=== PATIENT | female | born 1980 | race Two or more races ===

== ENCOUNTER 2019-12-29 18:13 | Inpatient (IN) | payer MEDICARE, MEDICAID ==
[~2019-12-29] VITALS: Ht 167.6 cm; Wt 110.2 kg
[2019-12-29] MEDS ORDERED: ALBUTEROL2.5 MG/3 M INH (22:03)
[2019-12-29] MEDS ORDERED: KEPPRA500 M4 ORAL (22:03)
[2019-12-29] MEDS ORDERED: Albuterol ud Inhalation HHN PRN (22:30)
[2019-12-29 23:00] VITALS: BP 128/77
--- NOTE | 2019-12-29 23:00 | NUR ---
NURSE NOTES: PATIENT DIRECT ADMIT FROM STEPHAN. PATIENT AOX4. NO S/S DISTRESS NOTED. REVIEWED BELONGINGS - ONLY CELL PHONE AND INTERIOR WIRER. BOYFRIEND AT BEDSIDE. NO OPEN WOUNDS OR PRESSURE ULCERS NOTED. CAN REPOSITION SELF. BED IN LOWEST POSITION, CALL LIGHT WITHIN REACH, BED ALARM ON. WILL CONTINUE TO MONITOR.
[2019-12-30 04:00] VITALS: BP 120/67
[2019-12-30] MEDS: LORazepam Inj 2mg/ml 1ml IV PRN ×2 (05:40→15:38)
--- NOTE | 2019-12-30 06:00 | NUR ---
NURSE NOTES: 0530 - PATIENT'S BOYFRIEND WOKE UP AND NOTICED PATIENT WAS HAVING A SEIZURE AND NOTIFIED THE NURSE. THE NURSE WENT TO GET THE ATIVAN AND ATIVAN PRN MED WAS ADMINISTERED. PER PATIENT'S BOYFRIEND, SEIZURE LASTED FOR ABOUT TEN SECONDS AND THAT SHE HAD A SECOND ONE. NURSE TRIED TO ASSESS PATIENT'S NEURO STATUS, BUT PATIENT WAS UNAROUSABLE. 0550 - PATIENT STARTED TO BECOME MORE RESPONSIVE. PATIENT ABLE TO ANSWER YES OR NO QUESTIONS AND COMPLAINING OF SEVERE HEADACHE AND BACK PAIN. 0600 - CALLED AND LEFT MESSAGE FOR DR. NAIDU REGARDING PATIENT'S REQUEST FOR DILAUDID SINCE PATIENT STATED THAT WAS THE ONLY MEDICATION THAT HELPED WITH HER PAIN.
[2019-12-30] MEDS: Tylenol #3 tab (300mg/30mg) ORAL PRN ×2 (06:30→12:23)
--- NOTE | 2019-12-30 07:15 | NUR ---
NURSE NOTES: Received report from CAREN Fam. Patient A&Ox4, in bed eating breakfast. On room air, no signs of distress or labored breathing. IVs intact, patent, and saline locked. Side rails padded for seizure precaution. Patient complaining of pain. Will follow up with pain management orders. Bed in lowest position with call light in reach. Will continue with plan of care.
--- NOTE | 2019-12-30 07:21 | NUR ---
HAND-OFF: Report given to OLEGARIO Delgado RN.
[2019-12-30 08:00] VITALS: BP 94/55
--- NOTE | 2019-12-30 08:15 | NUR ---
NURSE NOTES: Informed Dr. Mckenna patient is complaining of 10/10 sharp, lower back pain and current pain medication has not been effective. No new orders were given.
[2019-12-30 09:12] LABS: BASOPHILS % (AUTO) 1.3 % (0.0-2.0); EOSINOPHILS % (AUTO) 3.5 % (0.0-3.0); HEMATOCRIT 36.1 % (37.0-47.0); HEMOGLOBIN 11.8 G/DL (12.0-16.0); LYMPHOCYTES % (AUTO) 24.7 % (20.0-45.0); MEAN CORPUSCULAR VOLUME 78 FL (80-99); MONOCYTES % (AUTO) 6.9 % (1.0-10.0); NEUTROPHILS % (AUTO) 63.7 % (45.0-75.0); PLATELET COUNT 309 K/UL (150-450); RED BLOOD COUNT 4.62 M/UL (4.20-5.40); RED CELL DISTRIBUTION WIDTH 14.2 % (11.6-14.8); WHITE BLOOD COUNT 10.1 K/UL (4.8-10.8)
[2019-12-30 09:23] LABS: ANION GAP 4 mmol/L (5-15); BLOOD UREA NITROGEN 10 mg/dL (7-18); CALCIUM 8.8 MG/DL (8.5-10.1); CARBON DIOXIDE 27 MMOL/L (21-32); CHLORIDE 109 MMOL/L (98-107); CREATININE 0.7 MG/DL (0.55-1.30); PHOSPHORUS 2.8 MG/DL (2.5-4.9); SODIUM 140 MMOL/L (136-145)
[2019-12-30] MEDS ORDERED: Heparin 5000 units/ml inj SUBQ SCH (10:00)
[2019-12-30 12:00] VITALS: BP 102/60
--- NOTE | 2019-12-30 12:48 | Consultation ---
History of Present Illness General Date patient seen: Dec 30, 2019 Time patient seen: 08:00 Chief Complaint: breakthrough seziure Referring physician: dr Mckenna Reason for Consultation: inpatient management Present Illness HPI 39 years old female with past medical history of seizure disorder ,diagnosed 2 years ago, cardiac arrest, stroke, headaches, only experienced during seizure activity, initially presented to [facility] due to breakthrough seizure episodes. Patient had another episode of seizure at [place], which was focal with right upper extremity shaking. Patient was treated with Ativan and remained postictal after that . Laboratory work-up revealed mild leukocytosis WBC 11.2, potassium 2.4, magnesium was stable. CT of the head revealed no acute intracranial pathology. EtOH level less than 10. Urinalysis revealed no evidence of UTI. Potassium was repleted and stabilized. Patient subsequently was transferred to [facility] due to insurance purposes . Overnight she had another 2 episodes of seizures. During evaluation patient was already awake and alert , but very weak and reported poorly controlled seizure activity . she does has a neurologist , but she does not follow him on a regular basis. Allergies: Coded Allergies: AMITRIPTYLINE (Verified Allergy, Unknown, 12/29/19) GABAPENTIN (Verified Allergy, Unknown, 12/29/19) SUMATRIPTAN (Verified Allergy, Unknown, 12/29/19) TOPIRAMATE (Verified Allergy, Unknown, 12/29/19) Medication History Scheduled Levetiracetam (Keppra), 500 MG ORAL BID, (Reported) Scheduled PRN Albuterol Sulfate* (Albuterol Sulfate Hhn*), 3 ML INH Q4H PRN for Shortness of Breath, (Reported) Patient History History Provided By: Patient Healthcare decision maker Resuscitation status Advanced Directive on File Review of Systems Constitutional: Reports: weakness Eye: Reports: no symptoms ENT: Reports: no symptoms Respiratory: Reports: no symptoms Cardiovascular: Reports: no symptoms Gastrointestinal: Reports: no symptoms Musculoskeletal: Reports: back pain Skin: Reports: no symptoms Psychiatric: Reports: depressed feelings Neurological: Reports: see HPI Endocrine: Reports: no symptoms Hematologic/Lymphatic: Reports: no symptoms Physical Exam General Appearance: other - awake, alert, morbidly obese female in NAD Lines, tubes and drains: peripheral HEENT: normocephalic, atraumatic, anicteric, mucous membranes moist Respiratory/Chest: lungs clear, no respiratory distress, no accessory muscle use Cardiovascular/Chest: normal peripheral pulses, normal rate Abdomen: normal bowel sounds, non tender - obese, soft Extremities: normal range of motion, non-tender Skin Exam: normal pigmentation, warm/dry Neurologic: no motor/sensory deficits, alert, oriented x 3, responsive Musculoskeletal: normal muscle bulk Last 24 Hour Vital Signs Date Time Temp Pulse Resp B/P (MAP) Pulse Ox O2 Delivery O2 Flow Rate FiO2 12/30/19 08:19 101 16 98 Room Air 21 12/30/19 08:00 98.0 115 20 94/55 (68) 96 12/30/19 04:00 98.2 86 18 120/67 (84) 99 12/29/19 23:00 98.7 89 18 128/77 (94) 96 12/29/19 23:00 Room Air Intake and Output 12/29/19 12/30/19 19:00 07:00 Intake Total 240 ml Balance 240 ml Intake Oral 240 ml # Voids 3 # Bowel Movements 1 Laboratory Tests Test 12/30/19 09:00 White Blood Count 10.1 K/UL (4.8-10.8) Red Blood Count 4.62 M/UL (4.20-5.40) Hemoglobin 11.8 G/DL (12.0-16.0) L Hematocrit 36.1 % (37.0-47.0) L Mean Corpuscular Volume 78 FL (80-99) L Mean Corpuscular Hemoglobin 25.5 PG (27.0-31.0) L Mean Corpuscular Hemoglobin Concent 32.7 G/DL (32.0-36.0) Red Cell Distribution Width 14.2 % (11.6-14.8) Platelet Count 309 K/UL (150-450) Mean Platelet Volume 6.7 FL (6.5-10.1) Neutrophils (%) (Auto) 63.7 % (45.0-75.0) Lymphocytes (%) (Auto) 24.7 % (20.0-45.0) Monocytes (%) (Auto) 6.9 % (1.0-10.0) Eosinophils (%) (Auto) 3.5 % (0.0-3.0) H Basophils (%) (Auto) 1.3 % (0.0-2.0) Sodium Level 140 MMOL/L (136-145) Potassium Level 4.0 MMOL/L (3.5-5.1) Chloride Level 109 MMOL/L (98-107) H Carbon Dioxide Level 27 MMOL/L (21-32) Anion Gap 4 mmol/L (5-15) L Blood Urea Nitrogen 10 mg/dL (7-18) Creatinine 0.7 MG/DL (0.55-1.30) Estimat Glomerular Filtration Rate > 60 mL/min (>60) Glucose Level 97 MG/DL (74-106) Calcium Level 8.8 MG/DL (8.5-10.1) Phosphorus Level 2.8 MG/DL (2.5-4.9) Magnesium Level 1.9 MG/DL (1.8-2.4) Height (Feet): 5 Height (Inches): 6.00 Weight (Pounds): 243 Medications Current Medications Medications (Trade) Dose Ordered Sig/Megan Route PRN Reason Start Time Stop Time Status Last Admin Dose Admin Acetaminophen (Tylenol) 650 mg Q6H PRN ORAL Mild Pain/Temp > 100.5 12/29/19 22:30 01/28/20 22:29 Acetaminophen/ Codeine Phosphate (Tylenol #3) 1 tab Q6H PRN ORAL MOD/SEVERE PAIN 12/29/19 22:30 01/05/20 22:29 12/30/19 12:23 Albuterol Sulfate (Proventil) 2.5 mg Q4H PRN HHN Shortness of Breath 12/29/19 22:30 01/03/20 22:29 Heparin Sodium (Porcine) (Heparin 5000 units/ml) 5,000 units EVERY 12 HOURS SUBQ 12/30/19 10:00 01/29/20 09:59 12/30/19 10:03 Levetiracetam (Keppra) 500 mg BID ORAL 12/30/19 00:00 01/29/20 00:00 12/30/19 09:15 Lorazepam (Ativan 2mg/ml 1ml) 1 mg Q4H PRN IV For Seizures 12/29/19 22:30 01/05/20 22:29 12/30/19 05:40 Ondansetron HCl (Zofran) 4 mg Q6H PRN IVP Nausea & Vomiting 12/29/19 22:30 3/8/20 22:29 Assessment/Plan Assessment/Plan: ASSESSMENT breakthrough seizure Seizure disorder recently diagnosed Headaches with seizure Back pain Hypokalemia repleted Hx of cardiac arrest Hx of CVA Mild [id number] reactive, already resolved) PLAN of CARE [place] floor Seizure precaution Continue Keppra ,increase dose to to 750 mg bid Ativan prn for breakthrough seizures EEG Neuro eval DVT prophylaxis PT eval and rx pain management Supportive care case discussed and evaluated by supervising physician Viridiana Friend NP Dec 30, 2019 12:48
[2019-12-30] MEDS ORDERED: Morphine Sulfate 2mg/ml Inj(IV/IM USE ONLY) IVP SCH (14:00)
[2019-12-30] MEDS ORDERED: Morphine Sulfate 4mg/ml Inj (IV USE ONLY) IVP PRN ×2 (15:15→20:15)
[2019-12-30] MEDS ORDERED: Morphine Sulfate 2mg/ml Inj(IV/IM USE ONLY) IVP PRN (15:15)
--- NOTE | 2019-12-30 15:19 | History & Physical ---
History and Physical History & Physicial Dictated for Int Med-DR Mckenna no. [id number] Joanh Garcia MD Dec 30, 2019 15:19
[2019-12-30 16:00] VITALS: BP 100/65
--- NOTE | 2019-12-30 17:45 | NUR ---
NURSE NOTES: Patient had multiple seizures. Patient had two back to back seizures with subsequent periods of unresponsiveness/unconsciousness. Ativan 1 mg was given at 1538. All seizures documented and timed per protocol. Patient placed on 2L nasal cannula for comfort. A third seizure followed at 1558. Patient suctioned. Patient later found at 1630 unresponsive. Soon after patient is awake, confused, and appearing to be post-ictal. Patient given Keppra 750 mg at 1724. , Dr. Garcia, aware. Orders given and carried out.
--- NOTE | 2019-12-30 19:20 | NUR ---
HAND-OFF: Report given to CAREN Marin. Rounds done.
--- NOTE | 2019-12-30 19:30 | NUR ---
NURSE NOTES: Received report from CAREN Hollingsworth. AAO x 3-4, on room air. Family at bedside. Two IV sites intact and patent. Pt had multiple seizure episodes during day shift. SZ and fall precaution maintained. Oxygen and suction set up at bedside. Pt using commode. Will transfer to [place]. Bed locked, alarm on, side rails up, call light within reach. Will continue to monitor.
[2019-12-30 20:00] VITALS: BP 125/53
--- NOTE | 2019-12-30 20:12 | NUR ---
HAND-OFF: Report given to Nellie kimbrough RN [place]. Pt transferred to [place]. Report given. All belongings sent with pt.
[2019-12-30] MEDS ORDERED: Albuterol ud Inhalation HHN PRN (20:14)
[2019-12-30] MEDS ORDERED: LORazepam Inj 2mg/ml 1ml IV PRN (20:14)
[2019-12-30] MEDS: Heparin 5000 units/ml inj SUBQ SCH (20:25)
--- NOTE | 2019-12-30 20:30 | NUR ---
NURSE NOTES: received pt from Ej FABIAN from [facility],. placed threat monitoring analyst on the pt, pt's boyfriend is at the bedside. pt is awake and AOx3-4 fatigue, passive and cooperative to care. pt is at RA 95% no SOB noted. skin intact and pt able to reposition by her self. Right FA 24G and Right subclavical 22G is not intact. will place new IV as soon as possible. side rails are padded due to seizure precaution. call light within reach. bed at the lowest position, alarmed, and locked. will continue to monitor pt with plan of care.
--- NOTE | 2019-12-30 21:00 | NUR ---
NURSE NOTES: new IV on right hand 20G no s/s of infilteration or infection. pt tolerated well. intact, clean, and patent.
[2019-12-30] MEDS: Morphine Sulfate 2mg/ml Inj(IV/IM USE ONLY) IVP PRN (21:08)
--- NOTE | 2019-12-30 23:00 | History and Physical Report ---
DATE OF ADMISSION: 12/29/2019 CHIEF COMPLAINT: The patient is a 39-year-old, female with a history of seizure disorder, presents with a chief complaint of witnessed seizure. HISTORY OF PRESENT ILLNESS: The patient has a history of seizure disorder, which was diagnosed in 2018. The patient is currently on Keppra. The patient states she has had several seizures while on Keppra. 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 The patient states she may forget to take her Keppra at times. The patient was at work on 12/29/2019. The patient had a witnessed seizure. The patient initially presented to [facility] emergency room. The patient is transferred to [facility] for insurance purposes. The patient is admitted with chief complaint of breakthrough seizures. REVIEW OF SYSTEMS: CONSTITUTIONAL: The patient denies weight loss or weight gain. The patient denies fevers or chills. HEENT: The patient denies ear or throat pain. The patient denies headache. CARDIOVASCULAR: The patient denies palpitations or chest pain. CHEST: The patient denies wheeze or shortness of breath. ABDOMEN: The patient denies nausea, vomiting, diarrhea, or constipation. GENITOURINARY: The patient denies dysuria or increased frequency of urination NEUROMUSCULAR: The patient complains of seizures as above. The patient denies generalized weakness. PAST MEDICAL HISTORY: Significant for: 1. Seizure disorder. 2. History of cardiac arrest secondary to seizures. 3. Cerebrovascular accident in 2017. PAST SURGICAL HISTORY: Significant for: 1. Open cholecystectomy. 2. Appendectomy. 3. section x4. CURRENT MEDICATIONS: 1. Keppra 500 mg one tablet p.o. twice daily. 2. Albuterol metered-dose inhaler two puffs p.o. q.i.d. p.r.n. ALLERGIES: 1. Amitriptyline. 2. Gabapentin. 3. Sumatriptan. 4. Topamax. SOCIAL HISTORY: The patient is single and lives with her boyfriend and her children. The patient denies tobacco use. The patient denies alcohol use. The patient works as a security support analyst. PHYSICAL EXAMINATION: VITAL SIGNS: Temperature 97.7, respirations 16, pulse 100, and blood pressure 126/56. GENERAL: The patient is well-developed, well-nourished female, in no apparent distress. HEENT: Eyes, pupils equal and responsive to light and accommodation. Extraocular movements are intact. NECK: Supple without lymphadenopathy. CHEST: Lungs are clear to auscultation bilaterally without wheezes or rales. CARDIOVASCULAR: Regular rate. S1, S2 normal without murmurs, rubs, or gallops. ABDOMEN: Soft, nontender, and nondistended. Positive bowel sounds. No evidence of hepatosplenomegaly. Currently, no rebound or guarding noted. EXTREMITIES: Negative for clubbing, cyanosis, or edema. RECTAL/GENITAL: Refused. NEUROLOGIC: Cranial nerves II through XII are grossly intact without focal deficits. Motor strength is 5/5 bilaterally. Deep tendon reflexes are 2+ plantar. LABORATORY STUDIES: WBC 11.2, hemoglobin 12.8, hematocrit 40.7, and platelets 132,000. Sodium 139, potassium 2.4, chloride 117, glucose 94, BUN 14, and creatinine 0.65. CT scan of the brain was reported as no acute intracranial abnormality. ASSESSMENT: This is a 39-year-old female. 1. Breakthrough seizure. 2. Seizure disorder. 3. Cerebrovascular disease. 4. Coronary artery disease. TREATMENT: 1. Seizure disorder. A Neurology consultation with Dr. Nakul Griffin. The patient is currently on a low dose of Keppra. The patient has been increased to Keppra 750 mg p.o. twice daily. We will follow recommendations of Neurology. 2. History of cerebrovascular accident. 3. History of coronary artery disease. Jonah Garcia M.D. DR: RAYMOND JOB#: [id number] CC:
[2019-12-31] VITALS: BP 94/56
--- NOTE | 2019-12-31 00:50 | NUR ---
NURSE NOTES: after checking 0000 vital sign, pt suddenly started seizure movement by shaking whole body, pt's boyfriend called RNs to notify. and antivan given, VS is 121/78 HR 105. non-breather mask implemented by RT. O2sat is at 100%. EKG Done. call light within reach. bed at the lowest position. will continue to monitor pt with plan of care.
--- NOTE | 2019-12-31 01:07 | NUR ---
NURSE NOTES: VS: 115/53 HR 97 O2sat 97% with NC4L, T 97.5. and pt opens her eyes at this moment.
--- NOTE | 2019-12-31 01:16 | NUR ---
NURSE NOTES: BP 110/65 HR 97 97% with 5L of NC. pt moves around and pt moaning at this moment. siderails are padded. pt's boyfriend is at the bedside. call light within reach. bed at the lowest position
--- NOTE | 2019-12-31 01:30 | NUR ---
NURSE NOTES: pt is asleep at this moment. pt seems comfortable, no s/s of pain. will continue to monitor pt closely.
[2019-12-31 04:00] VITALS: BP 112/64
--- NOTE | 2019-12-31 04:30 | NUR ---
NURSE NOTES: pt is awake and AOx4 at this moment, little fatigue, and asked for food to eat. sandwich and extra water provided, call light within reach. pt's boyfriend is at the bedside sleeping. will continue to monitor pt.
[2019-12-31 05:46] LABS: BASOPHILS % (AUTO) 1.6 % (0.0-2.0); EOSINOPHILS % (AUTO) 4.7 % (0.0-3.0); HEMATOCRIT 34.6 % (37.0-47.0); HEMOGLOBIN 11.3 G/DL (12.0-16.0); LYMPHOCYTES % (AUTO) 28.9 % (20.0-45.0); MEAN CORPUSCULAR VOLUME 79 FL (80-99); NEUTROPHILS % (AUTO) 56.8 % (45.0-75.0); PLATELET COUNT 298 K/UL (150-450); RED BLOOD COUNT 4.35 M/UL (4.20-5.40); RED CELL DISTRIBUTION WIDTH 14.3 % (11.6-14.8); WHITE BLOOD COUNT 8.5 K/UL (4.8-10.8)
[2019-12-31 06:23] LABS: ALANINE AMINOTRANSFERASE 21 U/L (12-78); ALBUMIN 3.1 G/DL (3.4-5.0); ALBUMIN/GLOBULIN RATIO 0.7 (1.0-2.7); ALKALINE PHOSPHATASE 67 U/L (46-116); ANION GAP 6 mmol/L (5-15); ASPARTATE AMINO TRANSFERASE 20 U/L (15-37); BILIRUBIN,TOTAL 0.2 MG/DL (0.2-1.0); BLOOD UREA NITROGEN 14 mg/dL (7-18); CALCIUM 9.1 MG/DL (8.5-10.1); CARBON DIOXIDE 28 MMOL/L (21-32); CHLORIDE 108 MMOL/L (98-107); CREATININE 0.7 MG/DL (0.55-1.30); POTASSIUM 4.1 MMOL/L (3.5-5.1); SODIUM 142 MMOL/L (136-145)
--- NOTE | 2019-12-31 06:58 | NUR ---
HAND-OFF: Report given to Nivia FABIAN. pt is stable condition.
--- NOTE | 2019-12-31 07:00 | NUR ---
NURSE NOTES: Received report from CAREN Torres. The patient is resting on the bed without acute distress or shortness of breath. The patient's bed in the lowest position, call light in reach, and fall, aspiration, and seizure precaution reinforced. IV site intact and patent. Per microbiology lab analyst, the patient had episode of seizure activity. No seizure noted during rounding. Will continue plan of care.
[2019-12-31 08:00] VITALS: BP 108/54
[2019-12-31] MEDS: Heparin 5000 units/ml inj SUBQ SCH ×2 (08:21→21:04)
--- NOTE | 2019-12-31 08:39 | NUR ---
PT Note Patient has been transferred to [place]. Will hold PT at this time; resume when new orders are received.
[2019-12-31] MEDS: Morphine Sulfate 2mg/ml Inj(IV/IM USE ONLY) IVP PRN ×2 (09:14→16:12)
--- NOTE | 2019-12-31 09:20 | NUR ---
NURSE NOTES: The patient is stable without acute distress or shortness of breath. The patient has new consult to Dr. Griffin. The patient is scheduled for EEG today. Will continue plan of care.
--- NOTE | 2019-12-31 09:39 | Pulmonology Progress Note ---
Assessment/Plan Assessment/Plan ASSESSMENT breakthrough seizure with recurrent seizure activities Seizure disorder , diagnosed few yrs ago Headaches with seizure Back pain Hypokalemia repleted Hx of cardiac arrest Hx of CVA Mild leukocytosis, likely reactive, already resolved PLAN of CARE [place] seizure precaution continue Keppra , dose was increased to to 750 mg bid Ativan prn for breakthrough seizures EEG neuro eval DVT prophylaxis PT eval and rx pain management supportive care case discussed and evaluated by supervising physician Subjective Allergies: Coded Allergies: AMITRIPTYLINE (Verified Allergy, Unknown, 12/29/19) GABAPENTIN (Verified Allergy, Unknown, 12/29/19) SUMATRIPTAN (Verified Allergy, Unknown, 12/29/19) TOPIRAMATE (Verified Allergy, Unknown, 12/29/19) Subjective seizure this am transferred in [place] at this time awake, alert, responsive, but weak Objective Last 24 Hour Vital Signs Date Time Temp Pulse Resp B/P (MAP) Pulse Ox O2 Delivery O2 Flow Rate FiO2 12/31/19 08:00 97.8 90 20 108/54 (72) 96 12/31/19 08:00 86 12/31/19 07:50 95 17 96 Room Air 21 12/31/19 04:00 98.2 94 17 112/64 (80) 96 12/31/19 04:00 80 12/31/19 00:00 Room Air Room Air 12/31/19 00:00 97.9 95 17 94/56 (69) 95 12/30/19 23:53 91 12/30/19 21:00 Room Air Room Air 12/30/19 20:30 96 12/30/19 20:28 96 18 97 Room Air 21 12/30/19 20:00 98.5 105 19 125/53 (77) 96 12/30/19 16:00 98.4 116 20 100/65 (77) 96 12/30/19 12:00 98.4 95 20 102/60 (74) 98 Intake and Output 12/30/19 12/31/19 19:00 07:00 Intake Total 1060 ml 200 ml Output Total 400 ml Balance 1060 ml -200 ml Intake Oral 1060 ml 200 ml Output Urine Total 400 ml # Voids 3 # Bowel Movements 2 Objective General Appearance: other - awake, alert, morbidly obese female in NAD Lines, tubes and drains: peripheral HEENT: normocephalic, atraumatic, anicteric, mucous membranes moist Respiratory/Chest: lungs clear, no respiratory distress, no accessory muscle use Cardiovascular/Chest: normal peripheral pulses, normal rate Abdomen: normal bowel sounds, non tender - obese, soft Extremities: normal range of motion, non-tender Skin Exam: normal pigmentation, warm/dry Neurologic: no motor/sensory deficits, alert, oriented x 3, responsive Musculoskeletal: normal muscle bulk Laboratory Tests 12/31/19 04:25: White Blood Count 8.5, Red Blood Count 4.35, Hemoglobin 11.3L, Hematocrit 34.6L , Mean Corpuscular Volume 79L, Mean Corpuscular Hemoglobin 25.8L, Mean Corpuscular Hemoglobin Concent 32.5, Red Cell Distribution Width 14.3, Platelet Count 298, Mean Platelet Volume 6.5, Neutrophils (%) (Auto) 56.8, Lymphocytes (% ) (Auto) 28.9, Monocytes (%) (Auto) 8.0, Eosinophils (%) (Auto) 4.7H, Basophils (%) (Auto) 1.6, Sodium Level 142, Potassium Level 4.1, Chloride Level 108H, Carbon Dioxide Level 28, Anion Gap 6, Blood Urea Nitrogen 14, Creatinine 0.7, Estimat Glomerular Filtration Rate > 60, Glucose Level 103, Calcium Level 9.1, Total Bilirubin 0.2, Aspartate Amino Transf (AST/SGOT) 20, Alanine Aminotransferase (ALT/SGPT) 21, Alkaline Phosphatase 67, Total Protein 7.6, Albumin 3.1L, Globulin 4.5, Albumin/Globulin Ratio 0.7L, Thyroid Stimulating Hormone (TSH) 2.073 Current Medications Medications (Trade) Dose Ordered Sig/Megan Route PRN Reason Start Time Stop Time Status Last Admin Dose Admin Acetaminophen (Tylenol) 650 mg Q6H PRN ORAL Mild Pain/Temp > 100.5 12/30/19 20:14 01/28/20 20:13 12/31/19 04:55 Albuterol Sulfate (Proventil) 2.5 mg Q4H PRN HHN Shortness of Breath 12/30/19 20:14 01/03/20 20:13 Heparin Sodium (Porcine) (Heparin 5000 units/ml) 5,000 units EVERY 12 HOURS SUBQ 12/30/19 21:00 01/29/20 09:59 12/31/19 08:21 Levetiracetam (Keppra) 750 mg BID ORAL 12/31/19 09:00 01/29/20 00:00 12/31/19 08:22 Lorazepam (Ativan 2mg/ml 1ml) 1 mg Q4H PRN IV For Seizures 12/30/19 20:14 01/05/20 20:13 12/31/19 00:51 Morphine Sulfate (Morphine Sulfate) 2 mg Q4H PRN IVP Moderate Pain (Pain Scale 4-6) 12/30/19 20:14 01/06/20 20:13 12/31/19 09:14 Morphine Sulfate (Morphine Sulfate) 4 mg Q4H PRN IVP Severe Pain (Pain Scale 7-10) 12/30/19 20:15 01/06/20 20:14 Ondansetron HCl (Zofran) 4 mg Q6H PRN IVP Nausea & Vomiting 12/30/19 20:15 01/29/20 20:14 12/30/19 20:23 Viridiana Friend [employer] Dec 31, 2019 09:39
--- NOTE | 2019-12-31 11:30 | NUR ---
HAND-OFF: Report given to CAREN Cardenas. The patient is resting on the bed without acute distress or shortness of breath. The patient's bed in the lowest position, call light in reach, and fall, aspiration, and seizure precaution reinforced. IV site intact and patent. Endorsed plan of care.
--- NOTE | 2019-12-31 11:35 | NUR ---
NURSE NOTES: Assumed pt care,report given by Nivia Wisdom RN.Pt having a seizure activity while awake,,hand worker at bedside about to do EEG,advised not to give Ativan yet,seizures lasted 20 seconds.
[2019-12-31 12:00] VITALS: BP 109/64
--- NOTE | 2019-12-31 13:56 | Internal Med Progress Note ---
Subjective Date of Service: Dec 31, 2019 Physician Name Jonah Garcia Attending Physician Jarocho Mckenna MD Current Medications Medications (Trade) Dose Ordered Sig/Megan Route PRN Reason Start Time Stop Time Status Last Admin Dose Admin Acetaminophen (Tylenol) 650 mg Q6H PRN ORAL Mild Pain/Temp > 100.5 12/30/19 20:14 01/28/20 20:13 12/31/19 04:55 Albuterol Sulfate (Proventil) 2.5 mg Q4H PRN HHN Shortness of Breath 12/30/19 20:14 01/03/20 20:13 Heparin Sodium (Porcine) (Heparin 5000 units/ml) 5,000 units EVERY 12 HOURS SUBQ 12/30/19 21:00 01/29/20 09:59 12/31/19 08:21 Levetiracetam (Keppra) 750 mg BID ORAL 12/31/19 09:00 01/29/20 00:00 12/31/19 08:22 Lorazepam (Ativan 2mg/ml 1ml) 1 mg Q4H PRN IV For Seizures 12/30/19 20:14 01/05/20 20:13 12/31/19 00:51 Morphine Sulfate (Morphine Sulfate) 2 mg Q4H PRN IVP Moderate Pain (Pain Scale 4-6) 12/30/19 20:14 01/06/20 20:13 12/31/19 09:14 Morphine Sulfate (Morphine Sulfate) 4 mg Q4H PRN IVP Severe Pain (Pain Scale 7-10) 12/30/19 20:15 01/06/20 20:14 Ondansetron HCl (Zofran) 4 mg Q6H PRN IVP Nausea & Vomiting 12/30/19 20:15 01/29/20 20:14 12/30/19 20:23 Allergies: Coded Allergies: AMITRIPTYLINE (Verified Allergy, Unknown, 12/29/19) GABAPENTIN (Verified Allergy, Unknown, 12/29/19) SUMATRIPTAN (Verified Allergy, Unknown, 12/29/19) TOPIRAMATE (Verified Allergy, Unknown, 12/29/19) ROS Limited/Unobtainable: No Constitutional: Reports: no symptoms HEENT: Reports: no symptoms Cardiovascular: Reports: no symptoms Respiratory: Reports: no symptoms Gastrointestinal/Abdominal: Reports: no symptoms Genitourinary: Reports: no symptoms Neurologic/Psychiatric: Reports: no symptoms Subjective 39 YO F admitted with breakthrough seizures. Cover for Int Med-DR Mckenna. [place]. Continues to have seizures Objective Last Vital Signs Date Time Temp Pulse Resp B/P (MAP) Pulse Ox O2 Delivery O2 Flow Rate FiO2 12/31/19 12:00 98.1 87 20 109/64 (79) 98 12/31/19 09:00 Room Air Room Air 12/31/19 07:50 21 Laboratory Tests Test 12/31/19 04:25 White Blood Count 8.5 K/UL (4.8-10.8) Red Blood Count 4.35 M/UL (4.20-5.40) Hemoglobin 11.3 G/DL (12.0-16.0) L Hematocrit 34.6 % (37.0-47.0) L Mean Corpuscular Volume 79 FL (80-99) L Mean Corpuscular Hemoglobin 25.8 PG (27.0-31.0) L Mean Corpuscular Hemoglobin Concent 32.5 G/DL (32.0-36.0) Red Cell Distribution Width 14.3 % (11.6-14.8) Platelet Count 298 K/UL (150-450) Mean Platelet Volume 6.5 FL (6.5-10.1) Neutrophils (%) (Auto) 56.8 % (45.0-75.0) Lymphocytes (%) (Auto) 28.9 % (20.0-45.0) Monocytes (%) (Auto) 8.0 % (1.0-10.0) Eosinophils (%) (Auto) 4.7 % (0.0-3.0) H Basophils (%) (Auto) 1.6 % (0.0-2.0) Sodium Level 142 MMOL/L (136-145) Potassium Level 4.1 MMOL/L (3.5-5.1) Chloride Level 108 MMOL/L (98-107) H Carbon Dioxide Level 28 MMOL/L (21-32) Anion Gap 6 mmol/L (5-15) Blood Urea Nitrogen 14 mg/dL (7-18) Creatinine 0.7 MG/DL (0.55-1.30) Estimat Glomerular Filtration Rate > 60 mL/min (>60) Glucose Level 103 MG/DL (74-106) Calcium Level 9.1 MG/DL (8.5-10.1) Total Bilirubin 0.2 MG/DL (0.2-1.0) Aspartate Amino Transf (AST/SGOT) 20 U/L (15-37) Alanine Aminotransferase (ALT/SGPT) 21 U/L (12-78) Alkaline Phosphatase 67 U/L (46-116) Total Protein 7.6 G/DL (6.4-8.2) Albumin 3.1 G/DL (3.4-5.0) L Globulin 4.5 g/dL Albumin/Globulin Ratio 0.7 (1.0-2.7) L Thyroid Stimulating Hormone (TSH) 2.073 uiU/mL (0.358-3.740) Intake and Output 12/30/19 12/31/19 19:00 07:00 Intake Total 1060 ml 200 ml Output Total 400 ml Balance 1060 ml -200 ml Intake Oral 1060 ml 200 ml Output Urine Total 400 ml # Voids 3 # Bowel Movements 2 Objective PHYSICAL EXAMINATION: GENERAL: The patient is well-developed, well-nourished female, in no apparent distress. HEENT: Eyes, pupils equal and responsive to light and accommodation. Extraocular movements are intact. NECK: Supple without lymphadenopathy. CHEST: Lungs are clear to auscultation bilaterally without wheezes or rales. CARDIOVASCULAR: Regular rate. S1, S2 normal without murmurs, rubs, or gallops. ABDOMEN: Soft, nontender, and nondistended. Positive bowel sounds. No evidence of hepatosplenomegaly. Currently, no rebound or guarding noted. EXTREMITIES: Negative for clubbing, cyanosis, or edema. RECTAL/GENITAL: Refused. NEUROLOGIC: Cranial nerves II through XII are grossly intact without focal deficits. Motor strength is 5/5 bilaterally. Deep tendon reflexes are 2+ plantar. Assessment/Plan Assessment/Plan ASSESSMENT: This is a 39-year-old female. 1. Breakthrough seizure. 2. Seizure disorder. 3. Cerebrovascular disease. 4. Coronary artery disease. TREATMENT: 1. Seizure disorder. A Neurology consultation with Dr. Nakul Griffin. The patient is currently on a low dose of Keppra. The patient has been increased to Keppra 750 mg p.o. twice daily. Increase PRN ativan. We will follow recommendations of Neurology. 2. History of cerebrovascular accident. 3. History of coronary artery disease. 4. Spoke to Dr Griffin. Dr Griffin out of town. Dr Garnica covering Dr Griffin, however MD covering Dr Garnica does not come to [place]. Left Message. Jonah Garcia MD Dec 31, 2019 13:56
--- NOTE | 2019-12-31 14:31 | NUR ---
NURSE NOTES: Called Viridiana Friend ACADEMIC COACH,informed re abnormal results of EEG,said she had spoken with Dr Griffin re the pt.
[2019-12-31 15:25] LABS: ANION GAP 9 mmol/L (5-15); BLOOD UREA NITROGEN 13 mg/dL (7-18); CALCIUM 9.3 MG/DL (8.5-10.1); CARBON DIOXIDE 27 MMOL/L (21-32); CHLORIDE 104 MMOL/L (98-107); CREATININE 0.8 MG/DL (0.55-1.30); POTASSIUM 3.9 MMOL/L (3.5-5.1); SODIUM 139 MMOL/L (136-145)
[2019-12-31 16:00] VITALS: BP 129/73
--- NOTE | 2019-12-31 17:00 | NUR ---
NURSE NOTES: pt ambulating to bathroom assisted by boyfriend,ambulated with steady gait,pt told to keep on bedrest as precautionary measure,she might have a seizure in bathroom,verbalized understanding.
[2019-12-31] MEDS: LORazepam Inj 2mg/ml 1ml IV PRN (18:35)
--- NOTE | 2019-12-31 18:35 | NUR ---
NURSE NOTES: Cardia monitor showing HR 170's pt found having seizure activity,boyfriend not at bedside,Ativan 2 mg IV given,seizure lasted 30seconds.
--- NOTE | 2019-12-31 19:00 | Electroencephalogram ---
DATE OF PROCEDURE: 12/31/2019 REQUESTING PHYSICIAN: Jarocho Mckenna M.D. READING PHYSICIAN: José Luis Garnica M.D. PROCEDURE PERFORMED: EEG. HISTORY: This EEG was performed on a 39-year-old lady with a history of multiple medical problems including cardiac arrest, cerebrovascular disease, and a seizure disorder. The purpose of this EEG was to evaluate the patient for ongoing ictal or interictal phenomena. TECHNICAL NOTE: This EEG was performed on a [employer] with electrodes placed on the scalp according to the International 10-20 system. [id number] and [id number] montages were used. The EEG was technically satisfactory and was performed in the awake, drowsy, and sleep states. OBSERVATIONS: In the best awake state, the background activity consisted of 8.5-9 Hz posteriorly predominant well-developed alpha waveforms, which attenuated on eye opening. Drowsiness was characterized by dissolution of the alpha rhythm and the appearance of slower frequencies in the 5-6 Hz theta range. Stage II sleep was characterized by further slowing of the background in the delta and theta range, the presence of vertex waves and 14 Hz sleep spindles. 19 minutes and 28 seconds into the EEG, the patient started having right upper extremity shaking movements. These movements lasted for 150 seconds and were associated with movement and EMG artifact, but no EEG correlate, and after the event stopped, no slowing of the background was noted. IMPRESSION: Normal awake, drowsy, and stage II sleep EEG. COMMENT: Please note that the episode of right upper extremity shaking that lasted for 150 seconds was not associated with an EEG correlate and was not followed by any slowing of the background focally or generally following the episode. This episode thus represents a nonepileptic seizure. Clinical correlation is recommended. José Luis Garnica M.D., M.S.P.H. Clinical Neurophysiologist DR: GURINDER JOB#: [id number] MARISABEL
--- NOTE | 2019-12-31 19:10 | NUR ---
: HAND-OFF: Report given to Bryan Owusu RN.Pt remains sedated at this time,boyfriend at bedside..
--- NOTE | 2019-12-31 19:11 | NUR ---
NURSE NOTES: received pt from Theresa Delgado RN., pt is sleeping and resting on the bed, no SOB noted. pt is in RA O2sat is at 99%. pt seems relaxed and comfortable. pt's boyfriend is at the bedside sleeping. pt IV right Hand 20G is intact, clean, and patent. side rails are padded. call light within reach. bed at the lowest position, alarmed, and locked. will continue to monitor pt with plan of care.
[2019-12-31 19:55] VITALS: BP 125/77
--- NOTE | 2019-12-31 22:10 | NUR ---
NURSE NOTES: cleaned pt , applied new gown, oral care give. pt insists to go to restroom with boyfriend's help, explained why at its important to stay in bed at this moment due to unexpected seizure activities. provided bedpan and pt urinated. pt states that she understands. call light within reach. bed at the lowest position, alarmed, and locked. will continue to monitor pt.
--- NOTE | 2019-12-31 22:35 | NUR ---
NURSE NOTES: pt's boyfriend Luis Alberto left from the unit. provided direct phone number to SDU unit and pt aware boyfriend left.
--- NOTE | 2019-12-31 23:02 | NUR ---
NURSE NOTES: pt is sleeping on the bed. no s/s of pain and no SOB noted in RA. no seizure activity noted. will continue to monitor pt.
[2020-01-01] VITALS: BP 103/60
--- NOTE | 2020-01-01 00:10 | NUR ---
NURSE NOTES: pt is sleeping on the bed, no seizures noted. no SOB in RA. call light within reach
--- NOTE | 2020-01-01 03:17 | NUR ---
NURSE NOTES: pt had one episode of seizure, witnessed by two nurses (RN). side rails are padded. pt is on the bed. ativen given. O2sat 100%, no SOB noted. pt did not fall and did not hit her head. EKG done. call light within reach. will continue to monitor pt closely.
[2020-01-01] MEDS: LORazepam Inj 2mg/ml 1ml IV PRN ×2 (03:22→11:51)
--- NOTE | 2020-01-01 03:48 | NUR ---
NURSE NOTES: called pt's boyfriend Luis Alberto, updated pt's status at this moment.
[2020-01-01 04:00] VITALS: BP 106/55
[2020-01-01 04:53] LABS: BASOPHILS % (AUTO) 1.4 % (0.0-2.0); EOSINOPHILS % (AUTO) 4.2 % (0.0-3.0); HEMATOCRIT 36.5 % (37.0-47.0); LYMPHOCYTES % (AUTO) 25.6 % (20.0-45.0); MEAN CORPUSCULAR VOLUME 78 FL (80-99); MONOCYTES % (AUTO) 6.3 % (1.0-10.0); NEUTROPHILS % (AUTO) 62.5 % (45.0-75.0); PLATELET COUNT 270 K/UL (150-450); RED BLOOD COUNT 4.68 M/UL (4.20-5.40); RED CELL DISTRIBUTION WIDTH 14.1 % (11.6-14.8); WHITE BLOOD COUNT 8.3 K/UL (4.8-10.8)
--- NOTE | 2020-01-01 08:00 | NUR ---
NURSE NOTES: pt's BP 89/46 HR 103 O2sat is at 100%. T98.1 .pt is awake and AOx4 fatigue. pt is talking on the phone. call light within reach. no SOB noted.
[2020-01-01 08:05] VITALS: BP 89/46
[2020-01-01] MEDS: Heparin 5000 units/ml inj SUBQ SCH (08:35)
--- NOTE | 2020-01-01 10:30 | NUR ---
NURSE NOTES: Dr. Vivas at the bedside.
--- NOTE | 2020-01-01 10:43 | Pulmonology Progress Note ---
Assessment/Plan Problems: (1) Uncontrolled seizures (2) History of cardiac arrest (3) History of cholecystectomy (4) History of asthma Assessment/Plan Toradol for severe headache f/u neurology recommendations respiratory therapy titrate fio2 to sat of 92% seizure precaution Subjective ROS Limited/Unobtainable: No Interval Events: c/o headache Allergies: Coded Allergies: AMITRIPTYLINE (Verified Allergy, Unknown, 12/29/19) GABAPENTIN (Verified Allergy, Unknown, 12/29/19) SUMATRIPTAN (Verified Allergy, Unknown, 12/29/19) TOPIRAMATE (Verified Allergy, Unknown, 12/29/19) Objective Last 24 Hour Vital Signs Date Time Temp Pulse Resp B/P (MAP) Pulse Ox O2 Delivery O2 Flow Rate FiO2 01/01/20 08:05 98.1 103 19 89/46 (60) 99 01/01/20 04:00 98.8 101 18 106/55 (72) 100 01/01/20 03:32 90 01/01/20 00:00 97.8 95 18 103/60 (74) 98 12/31/19 23:30 94 12/31/19 20:00 116 18 97 Room Air 21 12/31/19 20:00 116 12/31/19 19:55 99.7 100 18 125/77 (93) 97 12/31/19 16:00 94 12/31/19 16:00 98.3 101 20 129/73 (91) 98 12/31/19 12:00 98.1 87 20 109/64 (79) 98 12/31/19 12:00 94 Intake and Output 12/31/19 01/01/20 19:00 07:00 Intake Total 960 ml 240 ml Output Total 502 ml 450 ml Balance 458 ml -210 ml Intake Oral 960 ml 240 ml Output Urine Total 500 ml 450 ml Stool Total 2 ml # Voids 3 3 General Appearance: WD/WN HEENT: normocephalic, atraumatic Respiratory/Chest: chest wall non-tender, lungs clear, normal breath sounds Breasts: no masses Abdomen: normal bowel sounds, soft, non tender Genitourinary: normal external genitalia Extremities: no clubbing Neurologic/Psychiatric: search engine optimization specialist II-XII grossly normal Laboratory Tests 12/31/19 14:40: Sodium Level 139, Potassium Level 3.9, Chloride Level 104, Carbon Dioxide Level 27, Anion Gap 9, Blood Urea Nitrogen 13, Creatinine 0.8, Estimat Glomerular Filtration Rate > 60, Glucose Level 126H, Calcium Level 9.3 01/01/20 04:30: White Blood Count 8.3, Red Blood Count 4.68, Hemoglobin 12.0, Hematocrit 36.5L, Mean Corpuscular Volume 78L, Mean Corpuscular Hemoglobin 25.7L, Mean Corpuscular Hemoglobin Concent 32.9, Red Cell Distribution Width 14.1, Platelet Count 270, Mean Platelet Volume 6.3L, Neutrophils (%) (Auto) 62.5, Lymphocytes ( %) (Auto) 25.6, Monocytes (%) (Auto) 6.3, Eosinophils (%) (Auto) 4.2H, Basophils (%) (Auto) 1.4, Levetiracetam (Keppra) Level [Pending] Current Medications Medications (Trade) Dose Ordered Sig/Megan Route PRN Reason Start Time Stop Time Status Last Admin Dose Admin Acetaminophen (Tylenol) 650 mg Q6H PRN ORAL Mild Pain/Temp > 100.5 12/30/19 20:14 01/28/20 20:13 01/01/20 08:00 Albuterol Sulfate (Proventil) 2.5 mg Q4H PRN HHN Shortness of Breath 12/30/19 20:14 01/03/20 20:13 Heparin Sodium (Porcine) (Heparin 5000 units/ml) 5,000 units EVERY 12 HOURS SUBQ 12/30/19 21:00 01/29/20 09:59 01/01/20 08:35 Ketorolac Tromethamine (Toradol 30mg) 15 mg Q6H PRN IV headache 01/01/20 10:45 01/06/20 10:44 UNV Levetiracetam (Keppra) 750 mg BID ORAL 12/31/19 09:00 01/29/20 00:00 01/01/20 08:34 Lorazepam (Ativan 2mg/ml 1ml) 2 mg EVERY 2 HOURS PRN IV For Seizures 12/31/19 14:00 01/05/20 20:13 01/01/20 03:22 Morphine Sulfate (Morphine Sulfate) 2 mg Q4H PRN IVP Moderate Pain (Pain Scale 4-6) 12/30/19 20:14 01/06/20 20:13 12/31/19 16:12 Morphine Sulfate (Morphine Sulfate) 4 mg Q4H PRN IVP Severe Pain (Pain Scale 7-10) 12/30/19 20:15 01/06/20 20:14 Ondansetron HCl (Zofran) 4 mg Q6H PRN IVP Nausea & Vomiting 12/30/19 20:15 01/29/20 20:14 12/30/19 20:23 Filiberto Vivas MD Jan 01, 2020 10:43
--- NOTE | 2020-01-01 11:10 | NUR ---
NURSE NOTES: Received report from Nellie Hermosillo RN, pt. in bed awake, appears to be A/O x's 3-4 able to make needs known, no signs or symptoms of acute cardiac or respiratory distress noted, bed alarm on, side rails up x's 3 and safety brakes engaged, call light within easy reach- pt. aware to ask for assist if ambulating to bathroom, side rails padded for seizure precautions- no seizure activity noted upon assessment, pt. appears to be sating well on room air- no distress noted, pure wick intact and set to suction, RFA 24G and Rt. hand 20G both IVs intact and patent, safety measures continued, will continue with plan of care.
--- NOTE | 2020-01-01 11:11 | NUR ---
HAND-OFF: Report given to Angela FABIAN. pt is in stable condition.
[2020-01-01] MEDS: Ketorolac 30mg Inj IV PRN ×2 (11:21→17:29)
--- NOTE | 2020-01-01 11:50 | NUR ---
NURSE NOTES: electronic device monitor showing HR 140's pt found having seizure activity,Ativan 2 mg IV given,seizure lasted 40 seconds. Will continue to monitor pt. and with plan of care. Pt. appears to be stable.
[2020-01-01 12:00] VITALS: BP 103/55
--- NOTE | 2020-01-01 12:11 | NUR ---
NURSE NOTES: reassessed pt. after seizure - pt. is A/O x's 3- appears to be lethargic but stable- pt. is on her cell phone, will continue to monitor pt. and with plan of care.
--- NOTE | 2020-01-01 12:20 | NUR ---
NURSE NOTES: client relationship manager Li called regarding EEG results- stating per report normal - pt. is ready for discharge- told her I will f/u with doctor Vangie as he is supposed to f/u with pt. today- per endorsement.
--- NOTE | 2020-01-01 12:54 | NUR ---
NURSE NOTES: called DR. Aquino office spoke with administrative assistant receptionist Tomeka- she stated DR. Garnica ordered EEG and is not on case. Will f/u with DR. Mckenna.
--- NOTE | 2020-01-01 12:59 | NUR ---
NURSE NOTES: left message with DR. josiah Pham- as pt. is set for discharge and pt. continuing to have seizures- awaiting for call back from doctor.
--- NOTE | 2020-01-01 13:13 | NUR ---
NURSE NOTES: made disability case manager Cheryl aware and charge nurse carla regarding awaiting call back from DR. Mckenna regarding discharge.
--- NOTE | 2020-01-01 14:10 | NUR ---
NURSE NOTES: per DR. Mckenna, pt.robi to be discharged - made aware of seizures- pt. is having pseudo seizures- per doctor. notified case management manager Vadim rosenbaum to continue to discharge.
--- NOTE | 2020-01-01 14:14 | NUR ---
NURSE NOTES: notified pts. boy friend regarding pt. being discharged- states he will pick pt. up by 4:30- 5pm as he lives in [place].
--- NOTE | 2020-01-01 15:24 | NUR ---
NURSE NOTES: pt. made of discharge - discharge packet given to pt. and discharge teaching done- pt. awaiting for boyfriend to pick her up.
--- NOTE | 2020-01-01 15:46 | NUR ---
NURSE NOTES: left message for DR. Mckenna- pt. asking for Keppra 750mg prescribed here to be faxed to [facility] in [place], [address] [place], [place] - as she will not be able to get into the clinic she usually goes to for 2 weeks..awaiting for call back from doctor.
[2020-01-01 16:00] VITALS: BP 109/65
--- NOTE | 2020-01-01 16:02 | NUR ---
CASE MANAGEMENT: INITIAL REVIEW 39YR OLD FEMALE DA FROM [facility] FOR FURTHER MANAGEMENT CC: SEIZURE DISORDER SI:SEIZURE DISORDER 98.7 89 18 128/77 96% ON RA IS:KEPPRA PO BID HEPARIN SQ BID EEG X1 \: 2W STEP DOWN UNIT CASE MANAGEMENT: REVIEW 01/01/20 SI:SEIZURE DISORDER 98.4 95 20 102/60 98% ON RA BG 126 IS:KEPPRA PO BID HEPARIN SQ BID \: 2W STEP DOWN UNIT PLAN: - DC TODAY
--- NOTE | 2020-01-01 17:11 | NUR ---
NURSE NOTES: pt. remains free from seizure- no seizure noted upon assessment- will continue to monitor pt. and with plan of care.
--- NOTE | 2020-01-01 17:34 | NUR ---
NURSE NOTES: notified pt. that DR. Mckenna will fax over prescription to pharmacy- pt. aware to f/u with pharmacy.
--- NOTE | 2020-01-01 18:39 | NUR ---
NURSE NOTES: pt. discharged with boyfriend lyn Paez to go home, pt. remains stable upon discharge and seizure free- no distress noted.
--- NOTE | 2020-01-01 18:57 | Internal Med Progress Note ---
Subjective Date of Service: Jan 01, 2020 Physician Name Jonah Garcia Attending Physician Jarocho Mckenna MD Current Medications Medications (Trade) Dose Ordered Sig/Megan Route PRN Reason Start Time Stop Time Status Last Admin Dose Admin Acetaminophen (Tylenol) 650 mg Q6H PRN ORAL Mild Pain/Temp > 100.5 12/30/19 20:14 01/28/20 20:13 01/01/20 08:00 Albuterol Sulfate (Proventil) 2.5 mg Q4H PRN HHN Shortness of Breath 12/30/19 20:14 01/03/20 20:13 Heparin Sodium (Porcine) (Heparin 5000 units/ml) 5,000 units EVERY 12 HOURS SUBQ 12/30/19 21:00 01/29/20 09:59 01/01/20 08:35 Ketorolac Tromethamine (Toradol 30mg) 15 mg Q6H PRN IV headache 01/01/20 10:45 01/06/20 10:44 01/01/20 17:29 Levetiracetam (Keppra) 750 mg BID ORAL 12/31/19 09:00 01/29/20 00:00 01/01/20 17:00 Lorazepam (Ativan 2mg/ml 1ml) 2 mg EVERY 2 HOURS PRN IV For Seizures 12/31/19 14:00 01/05/20 20:13 01/01/20 11:51 Morphine Sulfate (Morphine Sulfate) 2 mg Q4H PRN IVP Moderate Pain (Pain Scale 4-6) 12/30/19 20:14 01/06/20 20:13 12/31/19 16:12 Morphine Sulfate (Morphine Sulfate) 4 mg Q4H PRN IVP Severe Pain (Pain Scale 7-10) 12/30/19 20:15 01/06/20 20:14 Ondansetron HCl (Zofran) 4 mg Q6H PRN IVP Nausea & Vomiting 12/30/19 20:15 01/29/20 20:14 12/30/19 20:23 Allergies: Coded Allergies: AMITRIPTYLINE (Verified Allergy, Unknown, 12/29/19) GABAPENTIN (Verified Allergy, Unknown, 12/29/19) SUMATRIPTAN (Verified Allergy, Unknown, 12/29/19) TOPIRAMATE (Verified Allergy, Unknown, 12/29/19) ROS Limited/Unobtainable: No Constitutional: Reports: no symptoms HEENT: Reports: no symptoms Cardiovascular: Reports: no symptoms Respiratory: Reports: no symptoms Gastrointestinal/Abdominal: Reports: no symptoms Genitourinary: Reports: no symptoms Neurologic/Psychiatric: Reports: no symptoms Subjective 39 YO F admitted with breakthrough seizures. Cover for Int Med-DR Mckenna. [place]. Continues to have seizures Objective Last Vital Signs Date Time Temp Pulse Resp B/P (MAP) Pulse Ox O2 Delivery O2 Flow Rate FiO2 01/01/20 17:59 98.7 01/01/20 16:00 94 20 109/65 (80) 97 01/01/20 12:00 Room Air Room Air 12/31/19 20:00 21 Laboratory Tests Test 01/01/20 04:30 White Blood Count 8.3 K/UL (4.8-10.8) Red Blood Count 4.68 M/UL (4.20-5.40) Hemoglobin 12.0 G/DL (12.0-16.0) Hematocrit 36.5 % (37.0-47.0) L Mean Corpuscular Volume 78 FL (80-99) L Mean Corpuscular Hemoglobin 25.7 PG (27.0-31.0) L Mean Corpuscular Hemoglobin Concent 32.9 G/DL (32.0-36.0) Red Cell Distribution Width 14.1 % (11.6-14.8) Platelet Count 270 K/UL (150-450) Mean Platelet Volume 6.3 FL (6.5-10.1) L Neutrophils (%) (Auto) 62.5 % (45.0-75.0) Lymphocytes (%) (Auto) 25.6 % (20.0-45.0) Monocytes (%) (Auto) 6.3 % (1.0-10.0) Eosinophils (%) (Auto) 4.2 % (0.0-3.0) H Basophils (%) (Auto) 1.4 % (0.0-2.0) Levetiracetam (Keppra) Level Pending Intake and Output 12/31/19 01/01/20 19:00 07:00 Intake Total 960 ml 240 ml Output Total 502 ml 450 ml Balance 458 ml -210 ml Intake Oral 960 ml 240 ml Output Urine Total 500 ml 450 ml Stool Total 2 ml # Voids 3 3 Objective PHYSICAL EXAMINATION: GENERAL: The patient is well-developed, well-nourished female, in no apparent distress. HEENT: Eyes, pupils equal and responsive to light and accommodation. Extraocular movements are intact. NECK: Supple without lymphadenopathy. CHEST: Lungs are clear to auscultation bilaterally without wheezes or rales. CARDIOVASCULAR: Regular rate. S1, S2 normal without murmurs, rubs, or gallops. ABDOMEN: Soft, nontender, and nondistended. Positive bowel sounds. No evidence of hepatosplenomegaly. Currently, no rebound or guarding noted. EXTREMITIES: Negative for clubbing, cyanosis, or edema. RECTAL/GENITAL: Refused. NEUROLOGIC: Cranial nerves II through XII are grossly intact without focal deficits. Motor strength is 5/5 bilaterally. Deep tendon reflexes are 2+ plantar. Assessment/Plan Assessment/Plan ASSESSMENT: This is a 39-year-old female. 1. Breakthrough seizure. 2. Seizure disorder. 3. Cerebrovascular disease. 4. Coronary artery disease. TREATMENT: 1. Seizure disorder. A Neurology consultation with Dr. Nakul Griffin. The patient is currently on a low dose of Keppra. The patient has been increased to Keppra 750 mg p.o. twice daily. Increase PRN ativan. We will follow recommendations of Neurology. 2. History of cerebrovascular accident. 3. History of coronary artery disease. 4. Spoke to Dr Griffin. Dr Griffin out of town. Dr Garnica covering Dr Griffin, however covering Dr Garnica does not come to [place]. Left Message. 5. EEG=Normal Jonah Garcia MD Jan 01, 2020 18:56
--- NOTE | 2020-01-04 08:25 | Discharge Summary ---
Discharge Summary Discharge Summary _ DATE OF ADMISSION: 12/29/2019 DATE OF DISCHARGE 01/01/2020 DISCHARGED BY: Dr. Mckenna REASON FOR ADMISSION: 39 years old female with past medical history of seizure disorder, diagnosed 2 years ago, cardiac arrest, stroke, headaches( only during seizure activity), initially presented to [facility] due to breakthrough seizure episode. Patient had another episode of seizure at [place] , which was focal , with the right upper extremity shaking. Patient was treated with Ativan and remained postictal after it. Laboratory work-up revealed mild leukocytosis WBC 11.2, potassium 2.4, magnesium was stable. CT of the head revealed no acute intracranial pathology. ETOH level was less than 10. Urinalysis revealed no evidence of UTI. Potassium was repleted and stabilized. Patient subsequently was transferred to [facility] due to insurance purposes. Patient reported poorly controlled seizure activity. She sees a neurologist , but not on the regular basis. CONSULTANTS: environmental programs specialist Dr Vivas [facility]SE: Patient subsequently admitted to monitored floor. Seizure precautions maintained. Keppra dose was increased. Ativan was on board as needed for breakthrough seizure. DVT prophylaxis provided. EEG revealed normal EEG in awake and drowsy states. EEG episodes of right upper extremity shaking lasted 450 seconds was not associated with an EEG correlate and was not followed by any slowing of the background, focally or generally following the episode. This episode thus represents a nonepileptic seizure. Unfortunately unable to get neurology evaluation while in the hospital. Patient complained of low back pain . Pain management was addressed as needed . Patient was working with a physical therapist. Supportive care provided. No further seizure activities. Patient clinically stabilized and was ready for discharge home . Prescription for Keppra 750 mg po bid provided. Patient was advised and strongly encouraged to follow-up with neurologist next week. FINAL DIAGNOSES: Breakthrough seizure episode Seizure disorder , recently diagnosed , likely nonepileptic Headaches with seizure Back pain Hypokalemia - repleted Cerebrovascular disease with history of CVA History of cardiac arrest DISCHARGE MEDICATIONS: List of medication was sent with patient. DISCHARGE INSTRUCTIONS: Patient was discharged home. Follow-up with a primary care provider and neurologist in 1 week. Viridiana Friend NP Jan 04, 2020 08:25
== END 2020-01-01 18:30 | disposition home or self-care (01) | DRG 101 ==
LOC: 4E 21:40 → 2W 12-30 20:11
DX: G40.89 Other seizures (principal); Z86.74 Personal history of sudden cardiac arrest; I25.10 Atherosclerotic heart disease of native coronary artery without angina pectoris; I67.9 Cerebrovascular disease, unspecified
CPT/HCPCS: 36415; 80048; 80053; 80299; 83735; 84100; 84443; 85025; 93005; 94664; 95819; J2405